=== PATIENT | female | born 1980 | race Caucasian/White ===

== ENCOUNTER 2020-09-25 08:42 | Emergency (ER) | payer OTHER, SELFPAY ==
[2020-09-25 09:00] VITALS: BP 126/79; PULSE 100; RESP 20; TEMP 37.1; O2SAT 98
--- NOTE | 2020-09-25 09:51 | ED.URI ---
HPI - URI/Sore Throat General Chief Complaint: Upper Respiratory Infection Stated Complaint: sore throat Time Seen by Provider: 09/25/20 09:45 Source: patient and RN notes reviewed Mode of arrival: ambulatory Limitations: no limitations History of Present Illness HPI Narrative: Patient presents today complaining of a 2-day history of sore throat, body aches, ear pain, chills and sweats, nausea. Denies fever, congestion or rhinorrhea, headache, vomiting or diarrhea, loss of taste or smell. Currently rates her sore throat 09/12 and has been taking Advil without relief. She had similar symptoms approximately 2 weeks ago and was placed on a course of Augmentin by her employer/eye doctor without a confirmatory test. MD elicited complaint: sore throat Related Data Allergies Allergy/AdvReac Type Severity Reaction Status Date / Time No Known Allergies Allergy Verified 09/25/20 09:30 Review of Systems Review of Systems: Narrative: CONSTITUTIONAL: Denies body aches, fever. + Chills, sweats, body aches EYES: Denies visual changes, redness, or discharge. ENT: Denies rhinorrhea, congestion. + Bilateral ear pain, sore throat CARDIOVASCULAR: Denies chest pain, palpitations, or edema. RESPIRATORY: Denies cough or dyspnea. GASTROINTESTINAL: Denies abdominal pain, nausea, vomiting, or diarrhea. GENITOURINARY: Denies dysuria or hematuria. SKIN: Denies rash, itching, or wounds. MUSCULOSKELETAL: Denies back pain, joint pain, or myalgia. NEUROLOGIC: Denies headache, numbness, tingling, or weakness. PSYCH: Denies depression or anxiety. PMFSH Comments At time of signature, I have reviewed and agree with nursing past medical, surgical, social and family history unless otherwise noted. Please see nursing chart for further information. There is no relevant family history pertinent to the presenting complaint Exam Narrative: Exam Narrative: GENERAL: Mildly ill-appearing, well-nourished, and in no acute distress. HEAD: Normocephalic, atraumatic. EYES: EOMI. No redness or drainage. Conjunctivae normal. ENT: Mucous membranes pink and moist. Nares clear. No rhinorrhea. TMs normal bilaterally. Throat erythematous with mild edema. No exudate. Uvula midline. NECK: Normal AROM. Supple. Bilateral anterior and tonsillar lymphadenopathy. CHEST: No respiratory distress. Clear to auscultation. HEART: Regular rate and rhythm. No murmur appreciated. Normal peripheral pulses. EXTREMITIES: Normal range of motion. No edema. SKIN: Warm, dry, no rash. Capillary refill normal. Normal skin turgor. NEURO: No focal deficits. Alert and oriented x3. Gait steady. PSYCH: Normal affect. No signs of depression or anxiety. Course Vital Signs Vital signs: Vital Signs Temperature 98.7 F 09/25/20 09:00 Pulse Rate 100 09/25/20 09:00 Respiratory Rate 20 09/25/20 09:00 Blood Pressure 126/79 09/25/20 09:00 Pulse Oximetry 98 09/25/20 09:00 Temperature 98.7 F 09/25/20 09:00 Pulse Rate 100 09/25/20 09:00 Respiratory Rate 20 09/25/20 09:00 Blood Pressure 126/79 09/25/20 09:00 Pulse Oximetry 98 09/25/20 09:00 Reviewed. Pt has been instructed to follow up with her PCP regarding her elevated blood pressure today. MDM - URI/Sore Throat Differential Diagnosis Differential diagnosis: Likely upper respiratory infection, otitis media, viral infection, pharyngitis and other (Strep throat, COVID-19, tonsillitis) Lab Data Attestation: I reviewed the patient's lab results. Labs: Strep Screen Positive Group A Strep *(Reference Range: Negative)* Critical Care Time Critical Care Time Critical Care Time: No Discharge Plan Discharge Clinical Impression: Strep throat Patient Disposition: Home, Self-Care Condition: Stable Instructions: Antibiotic Form, Strep Throat (DC) Additional Instructions: Your rapid strep screen is positive today. Please take the azithromycin as prescri
== END 2020-09-25 09:55 | disposition home or self-care (01) ==
PROVIDERS: Emergency Provider Nurse Practitioner
DX: J02.0 Streptococcal pharyngitis (principal); Z20.822 Contact with and (suspected) exposure to COVID-19
CPT/HCPCS: 87426; 87880; 99203; C9803; G0463

== ENCOUNTER 2021-03-31 17:13 | Emergency (ER) | payer OTHER, SELFPAY ==
[2021-03-31 17:17] VITALS: BP 146/81; PULSE 93; RESP 16; TEMP 36.7; O2SAT 100
--- NOTE | 2021-03-31 18:00 | ED.GENADULT ---
HPI - General Adult General Chief complaint: Skin/Abscess/Foreign Body Stated complaint: allergic reaction to bug bites History of Present Illness HPI narrative: Patient presents for evaluation of pruritic lesions to her neck and extremities x4. She states she woke from sleep with symptoms yesterday. She thinks this was related to bedbug infestation. In January she had similar symptoms and went to [facility]. They gave her an injection of steroids and discharged her with Vistaril. She indicates that her symptoms improved. Thursday evening she was staying at her boyfriend's house, and believes he has bed bugs there. No fever, chills, nausea, vomiting, difficulty breathing, difficulty swallowing. She is out of hydroxyzine and would like a prescription for more. She states no chance of as she had a uterine ablation and tubal ligation. Related Data Home Medications Medication Instructions Recorded Confirmed No Home Medications 03/31/21 03/31/21 Allergies Allergy/AdvReac Type Severity Reaction Status Date / Time No Known Allergies Allergy Verified 03/31/21 17:29 Review of Systems Review of Systems: CONSTITUTIONAL: Denies fever, chills, or sweats. EYES: Denies visual changes, redness, or discharge. ENT: Denies rhinorrhea, congestion, sore throat, or otalgia. CARDIOVASCULAR: Denies chest pain, palpitations, or edema. RESPIRATORY: Denies cough or dyspnea. GASTROINTESTINAL: Denies abdominal pain, nausea, vomiting, or diarrhea. GENITOURINARY: Denies dysuria or hematuria. SKIN:Reports multiple bites to neck and extremities x 4 with associated itching MUSCULOSKELETAL: Denies back pain, joint pain, or myalgia. NEUROLOGIC: Denies headache, numbness, dizziness, or weakness. PSYCHIATRIC: Denies anxiety or depression. [facility] Past Medical History Medical History (Updated 03/31/21 @ 18:08 by Pernell Joseph, KELLY, JOCELYNN) Bed bug bite Surgical History Surgical History History of tubal ligation Family History Family History Mother No pertinent past medical history Social History Social History (Updated 03/31/21 @ 18:03 by Pernell Joseph, [facility], ) Smoking packs per day: 0.5 Smoking cigarettes per day: 10.0 Smoking status: Current every day smoker Substance use: never Living arrangements: alone Gender identity (if verbalized by the patient): Female Sexual Orientation (if Verbalized by the Patient): Straight or Heterosexual Spiritual care concerns: No Exam Narrative: GENERAL: Well-appearing, well-nourished, and in no acute distress. HEAD: Normocephalic, atraumatic. EYES: PERRLA and EOMI. ENT: Nares clear, no rhinorrhea or epistaxis. Mucous membranes moist. Oropharynx without tonsillar hypertrophy exudate or other lesions. Bilateral TMs pearly hernández nonbulging NECK: Supple. No adenopathy or masses. No carotid bruits or JVD CHEST: Clear to auscultation. No respiratory distress. No wheezes rales or rhonchi HEART: Regular rate and rhythm. No murmur heard. Normal peripheral pulses. ABDOMEN: Soft, nontender, nondistended, normal active bowel sounds. EXTREMITIES: Normal range of motion. No edema. SKIN: Multiple raised macules the majority of which are approximately 5 mm in size NEURO: No focal deficits. Alert and oriented x3. PSYCH: Normal mood and affect. Course Course Emergency Course: This a 40-year-old female who presented with concerns for bedbug infestation. She has been treated in the past for this with Vistaril and an injection of Solu-Medrol. That therapy was repeated today. She appears well clinically. We will discharge her with oral prednisone and Vistaril. She should follow-up outpatient for further evaluation and treatment return for worsening symptoms. Patient agreed with plan of care. Vital Signs Vital signs: Vital Signs Temperature 36.7 C 03/07
[2021-03-31] MEDS: methylPREDNISolone SOD SUCC 125 MG VIAL IM (18:17)
== END 2021-03-31 18:40 | disposition home or self-care (01) ==
PROVIDERS: Emergency Provider Nurse Practitioner
DX: S10.96XA Insect bite of unspecified part of neck, initial encounter (principal); T14.8XXA Other injury of unspecified body region, initial encounter; W57.XXXA Bitten or stung by nonvenomous insect and other nonvenomous arthropods, initial encounter
CPT/HCPCS: 96372; 99213; G0463; J2930

== ENCOUNTER 2021-07-09 08:35 | Emergency (ER) | payer OTHER, SELFPAY ==
[2021-07-09 08:40] VITALS: BP 133/82; PULSE 88; RESP 16; TEMP 36.7; O2SAT 99
--- NOTE | 2021-07-09 08:41 | ED.URI ---
HPI - URI/Sore Throat General Chief Complaint: Upper Respiratory Infection Stated Complaint: nausea sweating cough Time Seen by Provider: 07/09/21 08:42 Source: patient and RN notes reviewed History of Present Illness HPI Narrative: Patient is a 40-year-old female who presents the urgent care with complaints of nausea, cough, diarrhea, sweats. Patient states her whole family tested positive for Covid a week ago and her symptoms started 7 days ago. Patient states that she is supposed to return to work today and is going to need a work note. Patient did have a Covid vaccine however patient is still symptomatic. Patient has not had a Covid positive test since her symptoms started. Patient has been taking NyQuil, Benadryl, DayQuil, ibuprofen and Tylenol. No other acute complaints. No acute distress noted. Patient aware of the plan of care. Some parts of this dictation were generated by voice recognition software and may contain typographical and/or grammatical inaccuracies. Related Data Home Medications Medication Instructions Recorded Confirmed No Home Medications 03/31/21 03/31/21 Allergies Allergy/AdvReac Type Severity Reaction Status Date / Time No Known Allergies Allergy Verified 07/09/21 09:08 Review of Systems Review of Systems: CONSTITUTIONAL: Reports of chills and sweats EYES: Denies visual changes, redness, or discharge. ENT: Reports of sore throat, rhinorrhea CARDIOVASCULAR: Denies chest pain, palpitations, or edema. RESPIRATORY: Reports of cough without dyspnea GASTROINTESTINAL: Reports of nausea and diarrhea GENITOURINARY: Denies dysuria or hematuria. SKIN: Denies rash or itching. MUSCULOSKELETAL: Denies back pain, joint pain. Reports of body aches NEUROLOGIC: Denies headache, numbness, or weakness. All other systems reviewed are negative, except as documented in HPI. [facility]LY [facility], [facility] Past Medical History Medical History (Updated 07/09/21 @ 09:09 by KELLY Lord) Bed bug bite Surgical History Surgical History History of tubal ligation Family History Family History Mother No pertinent past medical history Social History Social History (Updated 03/31/21 @ 18:03 by Pernell Joseph, [facility], ) Smoking packs per day: 0.5 Smoking cigarettes per day: 10.0 Smoking status: Current every day smoker Substance use: never Gender identity (if verbalized by the patient): Female Sexual Orientation (if Verbalized by the Patient): Straight or Heterosexual Spiritual care concerns: No Comments At the time of my signature, I reviewed and agree with the nursing past medical, surgical, social, and family history. There is no relevant family history pertinent to the patient complaint. Exam Narrative: GENERAL: This is a well-nourished, well-developed patient. Appears fatigued and tearful HEAD: normocephalic, atraumatic. EYES: PERRL. Sclera clear/white. Vision is grossly intact. EARS: External ears normal, auditory canals clear and without drainage, TMs normal without perforation. Hearing grossly intact. NOSE: External nose normal with no obvious nasal discharge, nares without redness, no rhinorrhea. THROAT: Mucous membranes moist mild erythema noted posterior pharynx with moderate postnasal drainage NECK: Neck supple, non-tender without lymphadenopathy CARDIOVASCULAR: Regular rate and rhythm without murmurs, gallops, or rubs. RESPIRATORY: Clear to auscultation. Breath sounds equal bilaterally. No wheezes, rales, or rhonchi. SKIN: Diaphoretic. wArm, intact with no suspicious lesions or rash, good texture and turgor. NEURO: awake, alert, and oriented to person, place and time. There were no obvious focal neurologic abnormalities. EXTREMITIES: No clubbing, cyanosis, or edema. Course Course Level of Care: Express Care Visit Vital Signs Vital signs: Vital Signs Temperatu
== END 2021-07-09 09:10 | disposition home or self-care (01) ==
PROVIDERS: Emergency Provider Nurse Practitioner Family
DX: U07.1 COVID-19 (principal); F17.210 Nicotine dependence, cigarettes, uncomplicated
CPT/HCPCS: 99211; G0463

== ENCOUNTER 2022-04-23 08:41 | Emergency (ER) | payer OTHER, SELFPAY ==
--- NOTE | 2022-04-23 08:42 | ED.URI ---
HPI - URI/Sore Throat General Chief Complaint: Upper Respiratory Infection Stated Complaint: Cough/Headache Time Seen by Provider: 04/23/22 08:42 Source: patient and RN notes reviewed History of Present Illness HPI Narrative: Patient is a 41-year-old female who presents the urgent care with complaints of productive cough, wheezing, congestion, headache. 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 States that she had a negative COVID test yesterday at home and symptoms started on Thursday night/Thursday morning. Patient denies of any fever, nausea or vomiting. Patient has been taking ibuprofen, Tylenol, Delsym and Benadryl. No other acute complaints. No acute distress noted. Patient read the plan of care. Some parts of this dictation were generated by voice recognition software and may contain typographical and/or grammatical inaccuracies. Related Data Allergies Allergy/AdvReac Type Severity Reaction Status Date / Time No Known Allergies Allergy Verified 04/23/22 08:52 Review of Systems Review of Systems: CONSTITUTIONAL: Denies fever, chills, or sweats. EYES: Denies visual changes, redness, or discharge. ENT: Reports of sinus congestion, postnasal drainage CARDIOVASCULAR: Denies chest pain, palpitations, or edema. RESPIRATORY: Reports productive cough with wheezing GASTROINTESTINAL: Denies abdominal pain, nausea, vomiting, or diarrhea. GENITOURINARY: Denies dysuria or hematuria. SKIN: Denies rash or itching. MUSCULOSKELETAL: Denies back pain, joint pain, or myalgia. NEUROLOGIC: Reports of headache All other systems reviewed are negative, except as documented in HPI. [facility] Past Medical History Medical History (Updated 04/23/22 @ 09:06 by KELLY Lord) Bed bug bite Surgical History Surgical History History of tubal ligation Family History Family History Mother No pertinent past medical history Social History Social History (Updated 03/31/21 @ 18:03 by KELLY Guzman, JOCELYNN) Smoking packs per day: 0.5 Smoking cigarettes per day: 10.0 Smoking status: Current every day smoker Substance use: never Gender identity (if verbalized by the patient): Female Sexual Orientation (if Verbalized by the Patient): Straight or Heterosexual Spiritual care concerns: No Comments At the time of my signature, I reviewed and agree with the nursing past medical, surgical, social, and family history. There is no relevant family history pertinent to the patient complaint. Exam Narrative: GENERAL: This is a well-nourished, well-developed patient, in no apparent distress. HEAD: normocephalic, atraumatic. Frontal sinus tenderness EYES: PERRL. Sclera clear/white. Vision is grossly intact. EARS: External ears normal, auditory canals clear and without drainage, TMs normal without perforation. Hearing grossly intact. NOSE: External nose normal with no obvious nasal discharge, nares without redness, clear rhinorrhea. THROAT: Mucous membranes moist, mild to moderate erythema noted posterior pharynx with moderate postnasal drainage NECK: Neck supple, non-tender without lymphadenopathy CARDIOVASCULAR: Regular rate and rhythm without murmurs, gallops, or rubs. RESPIRATORY: Inspiratory wheezes throughout with slight crackles bibasilar SKIN: warm, intact with no suspicious lesions or rash, good texture and turgor. NEURO: awake, alert, and oriented to person, place and time. There were no obvious focal neurologic abnormalities. EXTREMITIES: No clubbing, cyanosis, or edema. Course Course Level of Care: Express Care Visit Vital Signs Vital signs: Vital Signs Temperature 97.9 F 04/23/22 08:46 Pulse Rate 83 04/23/22 08:46 Respiratory Rate 20 04/23/22 08:46 Blood Pressure 138/77 04/23/22 08:46 Pulse Oximetry 100 04/23/22 08:46 Oxygen Delivery
[2022-04-23 08:46] VITALS: BP 138/77; PULSE 83; RESP 20; TEMP 36.6; O2SAT 100
== END 2022-04-23 09:27 | disposition home or self-care (01) ==
PROVIDERS: Emergency Provider Nurse Practitioner Family
DX: J40 Bronchitis, not specified as acute or chronic (principal); F17.210 Nicotine dependence, cigarettes, uncomplicated
CPT/HCPCS: 99213; G0463

== ENCOUNTER 2022-06-02 18:18 | Emergency (ER) | payer OTHER, SELFPAY ==
[2022-06-02 18:35] VITALS: BP 125/92; PULSE 87; RESP 14; TEMP 36.7; O2SAT 100
--- NOTE | 2022-06-02 19:29 | ED.EXTPRO ---
HPI - Extremity Problem General Chief complaint: Skin/Abscess/Foreign Body Stated complaint: Left foot Large blister Time Seen by Provider: 06/02/22 19:29 Source: patient, RN notes reviewed and old records reviewed Mode of arrival: ambulatory Limitations: no limitations History of Present Illness HPI Narrative: 41-year-old female presents to the [facility] with a blister between toes 3 and 4, left foot. States has been there for at least a week. Redness developed to the dorsal aspect of the toe, not circumferential. Related Data Allergies Allergy/AdvReac Type Severity Reaction Status Date / Time No Known Allergies Allergy Verified 04/23/22 08:52 Review of Systems Review of Systems: All systems reviewed & are unremarkable except as noted in HPI and below Constitutional: Constitutional: Reports no additional constitutional complaints, Denies body ache(s), Denies chills, Denies fever(s) and Denies headache(s) Eyes: Eyes: Reports no additional eye complaints ENT: Reports system reviewed and no additional complaints, except as documented and Denies headache(s) Cardiovascular: Cardiovascular: Reports no additional cardiovascular complaints, Denies chest pain and Denies dyspnea Respiratory: Respiratory: Reports no additional respiratory complaints and Denies dyspnea Gastrointestinal: Gastrointestinal: Reports no additional gastrointestinal complaints and Denies abdominal pain Musculoskeletal: Musculoskeletal: Reports no additional musculoskeletal complaints Integumentary/Breasts: Skin/Breast: Reports as per HPI and Reports erythema Neurologic: Reports system reviewed and no additional complaints, except as documented and Denies headache(s) Psychiatric: Psychiatric: Reports no additional psychiatric complaints Allergic/Immunologic: Allergic/Immunologic: Reports no additional allergic/immunologic complaints [facility] Past Medical History Medical History Bed bug bite Surgical History Surgical History History of tubal ligation Family History Family History Mother No pertinent past medical history Social History Social History Smoking packs per day: 0.5 Smoking cigarettes per day: 10.0 Smoking status: Current every day smoker Substance use: never Gender identity (if verbalized by the patient): Female Sexual Orientation (if Verbalized by the Patient): Straight or Heterosexual Spiritual care concerns: No Comments At the time of my signature, I reviewed and agree with the nursing past medical, surgical, social, and family history. There is no relevant family history pertinent to the patient complaint. Exam Const: General: cooperative, healthy appearing, comfortable, no acute distress, well developed, alert and well nourished Nutritional Appearance: well nourished Orientation/consciousness: patient oriented x3 Limitations: no limitations HENMT: Head: normal to inspection Ears: external ears normal Face/Nose/Sinus: Normal external nose present, Normal nares present, Normal nasal mucous membranes and turbinates present and normal facial exam Face and sinus: normal facial exam Mouth: Yes Normal oral and palatal mucosa present, Yes lip normal and Yes moist mucous membranes abnormal Eyes: General: appearance normal, both eyes and all related structures Alignment and Position: alignment normal Pupils: Equal, round and reactive pupils present Neck: Neck: normal visual inspection, full ROM, no lymphadenopathy and no meningeal signs Chest: Chest palpation & inspection: normal inspection of the chest Resp: Effort & Inspection: normal respiratory effort and no use of accessory muscles Auscultation: clear to auscultation bilaterally, no crackles, no rales, no rhonchi and no wheezes Cardio: Rate
== END 2022-06-02 19:46 | disposition home or self-care (01) ==
PROVIDERS: Emergency Provider Nurse Practitioner; PCP Hospitalist
DX: S90.425A Blister (nonthermal), left lesser toe(s), initial encounter (principal); L03.032 Cellulitis of left toe; B35.3 Tinea pedis; F17.210 Nicotine dependence, cigarettes, uncomplicated; X58.XXXA Exposure to other specified factors, initial encounter
CPT/HCPCS: 99213; G0463

== ENCOUNTER 2022-08-13 20:05 | Emergency (ER) | payer OTHER, SELFPAY ==
[2022-08-13] VITALS (14 sets, daily range): BP systolic 121–182; BP diastolic 83–100; PULSE 74–93; RESP 10–20; TEMP 36.4; O2SAT 94–100
--- NOTE | ~2022-08-13 | CT_ITS ---
EXAMINATION: CT diagnostic chest w con DATE: 08/13/2022 22:14 INDICATION: Right chest pain TECHNIQUE: Computed tomography (CT) of the chest was performed with 75 mL Omnipaque-350 intravenous c ontrast. Additional 3D reconstructions utilizing coronal maximum intensity projection (MIP) were perf ormed. Automated exposure control and iterative reconstruction technique were employed. The dose-romelia th product was 168.36 mGy-cm. COMPARISON: None FINDINGS: 1 performed as a dedicated pulmonary embolism protocol CT, there is good contrast opacification of th e pulmonary arteries and no significant motion artifact yielding essentially diagnostic for the study which demonstrates no pulmonary embolism. No pneumonia, pulmonary edema or other pulmonary infiltrat es. No suspicious pulmonary nodules. No pleural effusion or pneumothorax. Heart size is normal. No pe ricardial effusion. Thoracic aorta is normal in caliber with no dissection. No pathologically enlarge d thoracic lymphadenopathy. 12 mm low-attenuation cyst at the upper pole of the left kidney. There is approximately 1.4 cm less well-defined lesion also at the upper pole of the left kidney but with sli ghtly greater than simple fluid attenuation, indeterminate but statistically most likely to represent an additional proteinaceous/hemorrhagic cyst. IMPRESSION: 1. No acute cardiopulmonary disease. 2. Indeterminate 1.4 cm lesion at the upper pole of left kidney statistically most likely to represen t a proteinaceous/hemorrhagic cyst but would recommend further evaluation with either ultrasound or p re and postcontrast MRI. Reviewed, dictated and finalized at location A. [facility] COATER IMPRESSION: 1. No acute cardiopulmonary disease. 2. Indeterminate 1.4 cm lesion at the upper pole of left kidney statistically m ost likely to represent a proteinaceous/hemorrhagic cyst but would recommend fu rther evaluation with either ultrasound or pre and postcontrast MRI.
--- NOTE | ~2022-08-13 | XR_ITS ---
EXAMINATION: XR chest 2V DATE: 08/13/2022 20:45 INDICATION: Shortness of breath and right-sided chest pain TECHNIQUE: PA and lateral views of the chest were obtained. COMPARISON: Chest radiograph dated 03/15/12 FINDINGS: The lungs remain clear with no focal airspace opacities, pulmonary edema, pleural effusion or pneumot horax. The cardiomediastinal silhouette is normal. Visualized bones and soft tissues are unremarkable . IMPRESSION: 1. No acute cardiopulmonary disease. Reviewed, dictated and finalized at location A. EL STATIONARY ENGINEER
--- NOTE | 2022-08-13 20:12 | ECG_ITS ---
Measurements Intervals [place] Rate: 90 P: 73 PA: 104 QRS: 74 QRSD: 90 T: 26 QT: 334 QTc: 410 Interpretive Statements SINUS RHYTHM WITH SHORT PA INTERVAL NO PREVIOUS ECG AVAILABLE FOR COMPARISON Electronically Signed On 08-14-2022 15:34:55 [employer]POR[employer] ATTOR[employer] by Nancy Arguelles M.D.
[2022-08-13 20:31] LABS: Basophils Absolute Auto 0.1 K/mm3 (0.0-0.1); Basophils Percent Auto 0.6 % (0.2-1.2); Eosinophils Absolute Auto 0.2 K/mm3 (0-0.3); Eosinophils Percent Auto 1.2 % (0-4.4); Hematocrit 47.8 % (37.0-47.0); Hemoglobin 16.5 g/dL (12.0-15.0); Immature Granulocyte Absolute 0.04 K/mm3 (0.00-0.031); Immature Granulocyte Percent A 0.3 % (0-0.5); Lymphocytes Absolute Auto 3.53 K/mm3 (0.9-3.2); Lymphocytes Percent Auto 27.8 % (18.3-44.2); Mean Corpuscular HGB Conc 34.5 g/dl (32-36); Mean Corpuscular Hemoglobin 31.3 pg (26-34); Mean Corpuscular Volume 90.5 fl (80-100); Mean Platelet Volume 8.9 fl (7.4-10.4); Monocytes Absolute Auto 0.5 K/mm3 (0.1-0.6); Monocytes Percent Auto 4.2 % (2.6-8.5); Neutrophils Absolute Auto 8.4 K/mm3 (1.3-6.7); Neutrophils Percent Auto 65.9 % (45.5-73.1); Platelet Count Result 294 k/mm3 (150-375); Red Blood Count 5.28 M/mm3 (4.2-5.4); White Blood Count 12.7 K/mm3 (4.5-10.0)
[2022-08-13 20:42] LABS: Prothrombin Time 12.9 Seconds (11.1-14.7)
[2022-08-13 20:43] LABS: Partial Thromboplastin Time 29.4 SECONDS (22.3-36.8)
[2022-08-13 20:48] LABS: Alanine Aminotransferase 15 U/L (6-35); Albumin Level 4.4 g/dL (3.5-5.1); Alkaline Phosphatase 59 U/L (38-126); Anion Gap 6 mmol/L (8-16); Aspartate Amino Transferase 19 U/L (14-36); Bilirubin,Total 0.9 mg/dL (0.2-1.3); Blood Urea Nitrogen 14 mg/dL (7-17); Carbon Dioxide 24 mmol/L (22-30); Chloride 105 mmol/L (98-107); Estimated CRCL calculation 92 ml/min; Estimated Glomerular Filt Rate > 60; Glucose 102 mg/dL (65-110); Lipase 76 U/L (23-300); Potassium 3.1 mmol/L (3.4-5.0); Sodium 135 mmol/L (137-145)
[2022-08-13 21:00] LABS: Troponin I < 0.012 ng/mL (0.000-0.034)
--- NOTE | 2022-08-13 21:42 | ED.CHESTPAIN ---
HPI - Chest Pain General Chief Complaint: Chest Pain Stated Complaint: chest pain - right Time Seen by Provider: 08/13/22 21:18 History of Present Illness HPI narrative: This is a 42F with no significant medical history who complains of right side chest pain for 4-5 days. It is described as sharp, 5/10, does not radiate, and is not associated with new or different shortness of breath. It began at rest and has no obvious aggravating or alleviating factors. She has a family history of cancer of unknown type in her mother, breast cancer in her father's family and is a pack a day smoker since age 9. She denies hemoptysis. Related Data Home Medications Medication Instructions Recorded Confirmed No Home Medications 08/13/22 08/13/22 Allergies Allergy/AdvReac Type Severity Reaction Status Date / Time No Known Allergies Allergy Verified 08/13/22 21:08 Review of Systems Review of Systems: CONSTITUTIONAL: Denies fever, chills, or sweats. ENT: Denies rhinorrhea, congestion, sore throat, or otalgia. CARDIOVASCULAR: Right side chest pain Denies palpitations, or edema. RESPIRATORY: Denies cough or dyspnea. GASTROINTESTINAL: Denies abdominal pain, nausea, vomiting, or diarrhea. GENITOURINARY: Denies dysuria or hematuria. SKIN: Denies rash or itching. MUSCULOSKELETAL: Denies back pain, joint pain, or myalgia. NEUROLOGIC: Denies headache, numbness, dizziness, or weakness. PSYCHIATRIC: Denies anxiety or depression. [facility] Past Medical History Medical History Bed bug bite Surgical History Surgical History History of tubal ligation Family History Family History Mother No pertinent past medical history Social History Social History Smoking packs per day: 0.5 Smoking cigarettes per day: 10.0 Smoking status: Current every day smoker Substance use: never Living arrangements: alone Gender identity (if verbalized by the patient): Female Sexual Orientation (if Verbalized by the Patient): Straight or Heterosexual Spiritual care concerns: No Exam Narrative: GENERAL: Well-developed, well-nourished, and in no acute distress. HEAD: Normocephalic, atraumatic. EYES: PERRLA and EOMI. ENT: Mucous membranes moist. CHEST: Clear to auscultation. No respiratory distress. No wheezes rales or rhonchi. No chest wall tenderness to palpation HEART: Regular rate and rhythm. No murmur heard. Normal peripheral pulses. ABDOMEN: Soft, nontender to palpation, nondistended, normal active bowel sounds. No CVA tenderness to palpation EXTREMITIES: Normal range of motion. No edema. SKIN: Warm, dry, no rash. NEURO: No focal deficits. Alert and oriented x3. PSYCH: Normal mood and affect. Course Course Emergency Course: 23:40 - CT not concerning for cardiothoracic abnormality. A 1.4cm lesion is noted on the left kidney with recommendation for additional imaging. WBC mildly elevated at 12.7. Hbg elevated at 16.5 (reportedly chronic). Chemistries demonstrate mild hypokalemia at 3.1. The patient denies current pain. Repeat troponin pending. 00:05 - Repeat troponin negative. The patient denies recurrent pain. Discussed return and emergency precautions including signs/symptoms of ACS and respiratory distress. The patient voiced understanding and agreement. All questions answered to the patient's satisfaction. Vital Signs Vital signs: Vital Signs Temperature 97.6 F 08/13/22 20:11 Pulse Rate 93 08/13/22 20:11 Respiratory Rate 16 08/13/22 20:11 Blood Pressure 182/100 H 08/13/22 20:11 Pulse Oximetry 100 08/13/22 20:11 Oxygen Delivery Room Air 08/13/22 20:11 Temperature 97.6 F 08/13/22 20:11 Pulse Rate 74 08/13/22 23:45 Respiratory Rate 13 08/13/22 23:45 Blood Pressure 121/97 H 08/13/22 23
[2022-08-13 23:50] LABS: Troponin I < 0.012 ng/mL (0.000-0.034)
== END 2022-08-14 00:15 | disposition home or self-care (01) ==
PROVIDERS: Emergency Medicine; Emergency Provider Preventive Medicine Aerospace Medicine; PCP Family Medicine
DX: R07.89 Other chest pain (principal); F17.210 Nicotine dependence, cigarettes, uncomplicated
CPT/HCPCS: 36415; 71046; 71260; 80053; 83690; 84484; 85025; 85610; 85730; 93005; 99284; Q9967

== ENCOUNTER 2022-11-07 07:31 | Outpatient (CLI) | payer OTHER, SELFPAY ==
[2022-11-07 17:56] LABS: Hemoglobin 17.3 g/dL (12.0-15.0); Mean Corpuscular HGB Conc 33.9 g/dl (32-36); Mean Corpuscular Hemoglobin 31.5 pg (26-34); Mean Corpuscular Volume 92.7 fl (80-100); Mean Platelet Volume 10.1 fl (7.4-10.4); Platelet Count Result 274 k/mm3 (150-375); White Blood Count 9.9 K/mm3 (4.5-10.0)
[2022-11-07 18:07] LABS: Alanine Aminotransferase 18 U/L (6-35); Albumin Level 4.5 g/dL (3.5-5.1); Alkaline Phosphatase 53 U/L (38-126); Anion Gap 6 mmol/L (8-16); Aspartate Amino Transferase 71 U/L (14-36); Bilirubin,Total 0.8 mg/dL (0.2-1.3); Blood Urea Nitrogen 14 mg/dL (7-17); Calcium 9.2 mg/dL (8.4-10.2); Carbon Dioxide 28 mmol/L (22-30); Chloride 104 mmol/L (98-107); Cholesterol 188 mg/dL (0-200); Estimated Glomerular Filt Rate > 60; Glucose 96 mg/dL (65-110); HDL Direct 55 mg/dL; Potassium 3.8 mmol/L (3.4-5.0); Sodium 138 mmol/L (137-145); Triglycerides 128 mg/dL (<150)
[2022-11-07 18:19] LABS: LDL Cholesterol Direct 104 mg/dL
== END 2022-11-07 07:32 | disposition home or self-care (01) ==
LOC: ANHBWCLAB 07:32
PROVIDERS: PCP Family Medicine; Visit Provider Family Medicine
DX: Z00.00 Encounter for general adult medical examination without abnormal findings (principal)
CPT/HCPCS: 36415; 80053; 80061; 85027

== ENCOUNTER 2023-01-30 07:13 | Outpatient (CLI) | payer OTHER, SELFPAY ==
[2023-01-30 18:23] LABS: Basophils Absolute Auto 0.1 K/mm3 (0.0-0.1); Basophils Percent Auto 0.7 % (0.2-1.2); Eosinophils Absolute Auto 0.2 K/mm3 (0-0.3); Eosinophils Percent Auto 2.2 % (0-4.4); Hematocrit 48.9 % (37.0-47.0); Hemoglobin 16.1 g/dL (12.0-15.0); Immature Granulocyte Absolute 0.04 K/mm3 (0.00-0.031); Immature Granulocyte Percent A 0.4 % (0-0.5); Lymphocytes Absolute Auto 2.65 K/mm3 (0.9-3.2); Lymphocytes Percent Auto 27.5 % (18.3-44.2); Mean Corpuscular HGB Conc 32.9 g/dl (32-36); Mean Corpuscular Hemoglobin 30.8 pg (26-34); Mean Corpuscular Volume 93.7 fl (80-100); Mean Platelet Volume 9.8 fl (7.4-10.4); Monocytes Absolute Auto 0.6 K/mm3 (0.1-0.6); Monocytes Percent Auto 5.8 % (2.6-8.5); Neutrophils Absolute Auto 6.1 K/mm3 (1.3-6.7); Neutrophils Percent Auto 63.4 % (45.5-73.1); Platelet Count Result 281 k/mm3 (150-375); Red Blood Count 5.22 M/mm3 (4.2-5.4); Red Cell Distribution Width 13.3 % (11.5-14.5); White Blood Count 9.6 K/mm3 (4.5-10.0)
[2023-01-30 18:40] LABS: Appearance Urine Cloudy (Clear); Bacteria Urine Rare /hpf; Bilirubin Urine Negative (Negative); Blood Urine Negative (Negative); Color Urine Yellow (Yellow); Glucose Urine UA Negative (Negative); Ketones Urine Negative (Negative); Leukocyte Esterase Ur Negative LEU/UL (NEGATIVE); Nitrate Urine Negative (Negative); Non Pathogenic Casts 0-2; Protein Urine Negative (Negative); RBC Urine 0-2 /hpf (0-2); Specific Grav Ur 1.019 (1.001-1.035); Squamous Epithelial Cell Urine Moderate /hpf (Few); Urobilinogen Urine 0.2 mg/dL (<2.0); WBC Urine 0-5 /hpf (0-3); pH Urine 6.5 (5.0-9.0)
[2023-01-30 18:56] LABS: Add Urine Microscopic? YES
[2023-02-03 17:23] LABS: Erythropoietin (EPO) 10.3 mIU/mL (2.6-18.5)
== END 2023-01-30 07:14 | disposition home or self-care (01) ==
LOC: ANHBWCLAB 07:14
PROVIDERS: PCP Family Medicine; Visit Provider Family Medicine
DX: D75.1 Secondary polycythemia (principal); F06.4 Anxiety disorder due to known physiological condition; F41.0 Panic disorder [episodic paroxysmal anxiety]
CPT/HCPCS: 36415; 81001; 82668; 85025

== ENCOUNTER 2023-09-10 09:56 | Emergency (ER) | payer MEDICAID, SELFPAY ==
[2023-09-10 10:02] VITALS: BP 119/84; PULSE 89; RESP 20; TEMP 36.6; O2SAT 100
--- NOTE | 2023-09-10 10:05 | ED.GENADULT ---
HPI - General Adult General Chief complaint: Upper Respiratory Infection Stated complaint: Sore Throat/Headache Source: patient, RN notes reviewed and old records reviewed Mode of arrival: ambulatory Limitations: no limitations History of Present Illness HPI narrative: 43-year-old female presents to [facility] with complaint of cough, congestion, sore throat, headache, myalgia, bilateral ear pressure that started on Thursday. Patient taking [id number] medications with little relief. Patient denies chest pain, dizziness weakness shortness Related Data Home Medications Medication Instructions Recorded Confirmed Inhaler 09/10/23 Allergies Allergy/AdvReac Type Severity Reaction Status Date / Time No Known Allergies Allergy Verified 09/10/23 09:59 Review of Systems Constitutional: Constitutional: Reports no additional constitutional complaints, Reports body ache(s), Denies chills, Reports fatigue, Denies fever(s) and Reports headache(s) Eyes: Eyes: Reports no additional eye complaints and Denies blurry vision ENT: Reports system reviewed and no additional complaints, except as documented, Denies vertigo, Denies dizziness, Denies ear discharge, Reports otalgia, Denies facial pain, Reports headache(s), Reports nasal congestion, Reports nasal discharge, Denies sinus pain, Reports sinus pressure and Reports sore throat Cardiovascular: Cardiovascular: Reports no additional cardiovascular complaints, Denies chest pain, Denies chest pain at rest, Denies rapid heart rate and Denies dyspnea Respiratory: Respiratory: Reports no additional respiratory complaints, Denies chest congestion, Reports cough, Denies pain on inspiration, Denies pain with cough and Denies dyspnea Gastrointestinal: Gastrointestinal: Denies abdominal pain, Denies diarrhea, Denies nausea and Denies vomiting Integumentary/Breasts: Skin/Breast: Denies rash Neurologic: Reports system reviewed and no additional complaints, except as documented, Denies vertigo, Denies dizziness and Denies headache(s) Endocrine: Endocrine: Denies fatigue PMFSH Past Medical History Medical History Bed bug bite Surgical History Surgical History History of tubal ligation Family History Family History Mother Depression Cancer Father History of ETOH abuse Daughter Asthma Grandparent Lung cancer Social History Social History Smoking packs per day: 1 Smoking cigarettes per day: 20.0 Smoking status: Current every day smoker Alcohol intake: current Alcohol use details: not often Rumble Lavon Substance use: current Lack of Transportation: No Lack of Food: Never True Current Housing: I Have Housing Concerned About Future Housing: No Difficulty Paying Gas/Electric Bills: No Difficulty Paying for Meds: No Currently Unemployed: No Education: High School Diploma/GED Difficulty w/ Childcare or Family Care: No Living arrangements: alone Occupation/Education: occupation Additional occupation/education comments: Banquet Attendant [employer] Gender identity (if verbalized by the patient): Female Sexual Orientation (if Verbalized by the Patient): Straight or Heterosexual Spiritual care concerns: No Agree to blood products: Yes Comments At the time of my signature, I reviewed and agree with the nursing past medical, surgical, social, and family history. There is no relevant family history pertinent to the patient complaint. Exam Const: General: cooperative, healthy appearing, no acute distress and well nourished Nutritional Appearance: well nourished Orientation/consciousness: patient oriented x3 Limitations: no limitations HENMT: Head: normal to inspection and normocephalic Ea
== END 2023-09-10 10:52 | disposition home or self-care (01) ==
PROVIDERS: Emergency Provider Registered Nurse; PCP Family Medicine
DX: J20.9 Acute bronchitis, unspecified (principal); Z20.822 Contact with and (suspected) exposure to COVID-19; F17.210 Nicotine dependence, cigarettes, uncomplicated
CPT/HCPCS: 87081; 87426; 87804; 87880; 99213; G0463

== ENCOUNTER 2024-04-21 11:16 | Emergency (ER) | payer BC, MEDICAID, SELFPAY ==
[2024-04-21 11:37] VITALS: BP 143/99; PULSE 87; RESP 16; TEMP 36.6; O2SAT 100
[2024-04-21 11:59] LABS: EDCOVIDSCREEN Negative (Negative)
[2024-04-21 11:59] LABS: EDINFLUASCREEN Negative (Negative); EDINFLUBSCREEN Negative (Negative)
--- NOTE | 2024-04-21 12:18 | ED.URI ---
HPI - URI/Sore Throat General Chief Complaint: Upper Respiratory Infection Stated Complaint: Shortness of Breath/Congestion/Cough Time Seen by Provider: 04/21/24 11:38 Source: patient, RN notes reviewed and old records reviewed Mode of arrival: ambulatory Limitations: no limitations History of Present Illness HPI Narrative: 43-year-old female to [facility] with complaint of sore throat, bilateral ear pain, cough, burning in her chest for 2 days. Patient reports history of tobacco use, asthma, anxiety, panic attacks. Patient has attempted to treat symptoms at home with DayQuil, NyQuil, Tylenol, ibuprofen with little relief. Patient denies shortness of breath, allergies, fever. Patient able tolerate fluids by mouth. Patient resting uncomfortably in exam room in no acute distress , appears tired. Respirations even and nonlabored. Patient able to speak in complete sentences without difficulty. Related Data Allergies Allergy/AdvReac Type Severity Reaction Status Date / Time No Known Allergies Allergy Verified 09/10/23 09:59 Review of Systems Review of Systems: All systems reviewed & are unremarkable except as noted in HPI and below Constitutional: Constitutional: Reports no additional constitutional complaints Eyes: Eyes: Reports no additional eye complaints ENT: Reports as per HPI, Reports otalgia and Reports sore throat Cardiovascular: Cardiovascular: Reports no additional cardiovascular complaints, Denies chest pain and Denies dyspnea Respiratory: Respiratory: Reports no additional respiratory complaints, Reports cough and Denies dyspnea Musculoskeletal: Musculoskeletal: Reports no additional musculoskeletal complaints Neurologic: Reports system reviewed and no additional complaints, except as documented Psychiatric: Psychiatric: Reports no additional psychiatric complaints [facility] Past Medical History Medical History Bed bug bite Surgical History Surgical History History of tubal ligation Family History Family History Mother Depression Cancer Father History of ETOH abuse Daughter Asthma Grandparent Lung cancer Social History Social History Smoking packs per day: 1 Smoking cigarettes per day: 20.0 Smoking status: Current every day smoker Alcohol intake: current Alcohol use details: not often Rumble Lavon Substance use: current Lack of Transportation: No Lack of Food: Never True Current Housing: I Have Housing Concerned About Future Housing: No Difficulty Paying Gas/Electric Bills: No Difficulty Paying for Meds: No Currently Unemployed: No Education: High School Diploma/GED Difficulty w/ Childcare or Family Care: No Living arrangements: alone Occupation/Education: occupation Additional occupation/education comments: [employer] Gender identity (if verbalized by the patient): Female Sexual Orientation (if Verbalized by the Patient): Straight or Heterosexual Spiritual care concerns: No Agree to blood products: Yes Comments At the time of my signature, I reviewed and agree with the nursing past medical, surgical, social, and family history. There is no relevant family history pertinent to the patient complaint. Exam Const: General: cooperative, no acute distress, alert, ill appearing acutely, tired appearing, uncomfortable and well nourished Nutritional Appearance: well nourished Orientation/consciousness: patient oriented x3 Limitations: no limitations HENMT: Head: normal to inspection Ears: external ears normal and TM abnormal erythematous bilateral and with fluid behind the TM bilateral ( purulent) Face/Nose/Sinus: Normal external nose present, Normal nares present, tiffanie
== END 2024-04-21 12:36 | disposition home or self-care (01) ==
PROVIDERS: Emergency Provider Nurse Practitioner Family; PCP Family Medicine
DX: R05.9 Cough, unspecified (principal); J32.9 Chronic sinusitis, unspecified; Z20.822 Contact with and (suspected) exposure to COVID-19; F17.210 Nicotine dependence, cigarettes, uncomplicated; J45.909 Unspecified asthma, uncomplicated; F41.9 Anxiety disorder, unspecified; F41.0 Panic disorder [episodic paroxysmal anxiety]
CPT/HCPCS: 87426; 87804; 99213; G0463

== ENCOUNTER 2024-11-01 12:50 | Emergency (ER) | payer OTHER, SELFPAY ==
[2024-11-01 12:56] VITALS: BP 135/84; PULSE 96; RESP 16; TEMP 36.6; O2SAT 100
--- NOTE | 2024-11-01 13:28 | ED_ITS ---
HPI - Female Genitourinary General Chief complaint: Urogenital-Female Stated complaint: Urinary Problem Time Seen by Provider: 11/01/24 13:29 Source: patient and RN notes reviewed Mode of arrival: ambulatory Limitations: no limitations History of Present Illness HPI Narrative: 44-year-old female presented for complaint of burning with urination, frequency and urgency. Onset 1 week. Noted blood in the urine today. Denies nausea, vomiting, abdominal pain, flank pain, constipation, diarrhea, fevers or chills. Related Data Allergies Allergy/AdvReac Type Severity Reaction Status Date / Time No Known Allergies Allergy Verified 11/01/24 13:00 Review of Systems Review of Systems: CONSTITUTIONAL: Denies body aches, fever, chills, or sweats. CARDIOVASCULAR: Denies chest pain, palpitations, or edema. RESPIRATORY: Denies cough or dyspnea. GASTROINTESTINAL: Denies abdominal pain, nausea, vomiting, or diarrhea. GENITOURINARY: Reports dysuria, frequency, urgency, hematuria, denies flank pain, discharge SKIN: Denies rash, itching, or wounds. MUSCULOSKELETAL: Denies back pain or myalgia. [facility] Past Medical History Medical History Bed bug bite Surgical History Surgical History History of tubal ligation Family History Family History Mother Depression Cancer Father History of ETOH abuse Daughter Asthma Grandparent Lung cancer Social History Social History Smoking packs per day: 1 Smoking cigarettes per day: 20.0 Smoking status: Current every day smoker Alcohol intake: current Alcohol use details: not often Rumble Lavon Substance use: current Lack of Transportation: No Lack of Food: Never True Current Housing: I Have Housing Concerned About Future Housing: No Difficulty Paying Gas/Electric Bills: No Difficulty Paying for Meds: No Currently Unemployed: No Education: High School Diploma/GED Difficulty w/ Childcare or Family Care: No Living arrangements: alone Occupation/Education: occupation Additional occupation/education comments: [employer] Gender identity (if verbalized by the patient): Female Sexual Orientation (if Verbalized by the Patient): Straight or Heterosexual Spiritual care concerns: No Agree to blood products: Yes Comments At time of signature, I have reviewed and agree with nursing past medical, surgical, social and family history unless otherwise noted. Please see nursing chart for further information. There is no relevant family history pertinent to the presenting complaint Exam Narrative: GENERAL: Well-appearing and in no acute distress. ENT: Mucous membranes pink and moist. NECK: Normal AROM. Supple. CHEST: No respiratory distress. Clear to auscultation. HEART: Regular rate and rhythm. ABDOMEN: Soft, nontender, nondistended, normal active bowel sounds. No CVA tenderness SKIN: Warm, dry, no rash. NEURO: No focal deficits. Alert and oriented x3. Gait steady. PSYCH: Normal affect. Course Course Emergency Course: Patient is aware of diagnosis, understands and agrees to treatment plan. Anticipatory guidance given. Patient agrees to follow-up as directed and is aware of reasons to seek care at the emergency department. Portions of this record may have been created with voice recognition software Level of Care: Express Care Visit Vital Signs Vital signs: Vital Signs Temperature 97.8 F 11/01/24 12:56 Pulse Rate 96 11/01/24 12:56 Respiratory Rate 16 11/01/24 12:56 Blood Pressure 135/84 11/01/24 12:56 Pulse Oximetry 100 11/01/24 12:56 Oxygen Delivery Room Air 11/01/24 12:56 Temperature 97.8 F 11/01/24 12:56 Pulse Rate 96 11/01/24 12:56 Respiratory Rate 16 11/01/24 12:56 Blood Pressure 135/84 11/01/24 12:56 Pulse Oximetry 100 11/01/24 12:56 Oxygen Delivery Room Air 11/01/24 12:56 Reviewed MDM - Female Genitourinary MDM Narrative Medical decision making narrative: Discussed physical exam findings and urine dip, will culture urine. Advised supportive measures and signs/symptoms to go to the ER. Pt is appropriate for outpt treatment and f/u. Differential Diagnosis Differential diagnosis: Likely urinary tract infection, bacterial vaginosis, vaginitis and cystitis Discharge Plan Discharge Clinical Impression: Urinary tract infection Patient Disposition: Home Condition: Stable Instructions: Antibiotic Form, Urinary Tract Infection in Women (ED) Additional Instructions: Take the antibiotic as prescribed The urine will be sent of for a culture to identify what type of bacteria is causing your infection. If the culture shows that the antibiotic will not get rid of your infection, you will be notified and a new antibiotic will be called in for you. Increase water intake you will need to follow up with your PCP, call to schedule an appointment. Go to the ER for any worsening symptoms or concerns Patient Language: Guinean Prescriptions: New nitrofurantoin monohyd/m-cryst [Macrobid] 100 mg capsule 100 mg PO Q12H 5 Days Qty: 10 0RF Rx Instructions: must administer with a meal/food Follow-up/Referrals: PHYSICIAN,APARTMENT PROPERTY MANAGER [Primary Care Provider] - Time of Disposition: 13:33
[2024-11-01 13:32] LABS: EDUAAPPEAR Cloudy; EDUABILI Negative (Negative); EDUABLOOD 3+ (Negative); EDUACOLOR1 Yellow; EDUAGLUCOSE Negative (Negative); EDUAKETONE Negative (Negative); EDUALEUKO 1+ (Negative); EDUANITRATE Negative (Negative); EDUAPROTEIN 2+ (Negative); EDUAUROBILI 0.2
== END 2024-11-01 13:35 | disposition home or self-care (01) ==
PROVIDERS: Emergency Provider Nurse Practitioner Family
DX: N39.0 Urinary tract infection, site not specified (principal); F17.210 Nicotine dependence, cigarettes, uncomplicated
CPT/HCPCS: 81003; 87086; 99213; G0463